=== PATIENT | female | born 1990 | race African-American/Black ===

== ENCOUNTER 2017-04-03 12:11 | Emergency (ER) | payer MEDICAID, OTHER ==
[~2017-04-03] VITALS: Ht 157.5 cm; Wt 59.0 kg
[2017-04-03 12:46] LABS: BASOPHILS % (AUTO) 0 % (0-10); EOSINOPHILS # (AUTO) 0.1 10^3/uL (0.0-0.3); EOSINOPHILS % (AUTO) 3 % (0-10); LYMPHOCYTES # (AUTO) 1.5 X 10^3 (1.0-4.0); LYMPHOCYTES % (AUTO) 38 % (12-44); MEAN CORPUSCULAR HEMOGLOBIN 30 PG (25-34); MEAN CORPUSCULAR HGB CONC 34 G/DL (32-36); MEAN CORPUSCULAR VOLUME 88 FL (80-99); MEAN PLATELET VOLUME 12.2 FL (7.4-10.4); MONOCYTES # (AUTO) 0.3 X 10^3 (0.0-1.0); MONOCYTES % (AUTO) 7 % (0-12); NEUTROPHILS # (AUTO) 2.1 X 10^3 (1.8-7.8); NEUTROPHILS % (AUTO) 51 % (42-75); PLATELET COUNT 213 10^3/uL (130-400); RED BLOOD COUNT 4.81 10^6/uL (4.35-5.85)
--- NOTE | 2017-04-03 12:52 | Diagnostic Imaging Report ---
Portable upright radiograph of the chest. INDICATION: Chest pain. FINDINGS: The lungs are clear. The heart size is borderline in size, probably exaggerated by the AP projection. No effusion or pneumothorax. The mediastinum and clark appear unremarkable. IMPRESSION: Prominent cardiac silhouette, probably due to the AP technique. No definite abnormality. Dictated by: Dictated on workstation # [id number]
--- NOTE | 2017-04-03 12:52 | ED Chest Pain ---
General Chief Complaint: Chest Pain Stated Complaint: CHEST PAIN Nursing Triage Note: c/o sternal intermittent chest pain x 1 month. Nursing Sepsis Screen: No Definite Risk Source: patient Exam Limitations: no limitations History of Present Illness Time seen by provider: 12:40 Allergies and Home Medications Allergies Coded Allergies: No Known Drug Allergies (Unverified , 04/03/17) Home Medications No Active Prescriptions or Reported Meds Past Tggkfcb-Jbqkhv-Birwoc Hx Patient Social History Alcohol Use: Denies Use Recreational Drug Use: Yes Drug of Choice: thc Smoking Status: Current Everyday Smoker Type Used: Cigarettes Recent Foreign Travel: No Contact w/Someone Who Travel: No Recent Infectious Disease Expo: No Recent Hopitalizations: No Seasonal Allergies Seasonal Allergies: No Physical Exam Vital Signs Vital Sign - Last 12Hours Capillary Refill : Less Than 3 Seconds Progress/Results/Core Measures Results/Orders Lab Results Laboratory Tests Test 04/03/17 12:35 Range/Units White Blood Count 4.0 L 4.3-11.0 10^3/uL Red Blood Count 4.81 4.35-5.85 10^6/uL Hemoglobin 14.5 11.5-16.0 G/DL Hematocrit 42 35-52 % Mean Corpuscular Volume 88 80-99 FL Mean Corpuscular Hemoglobin 30 25-34 PG Mean Corpuscular Hemoglobin Concent 34 32-36 G/DL Red Cell Distribution Width 12.0 10.0-14.5 % Platelet Count 213 130-400 10^3/uL Mean Platelet Volume 12.2 H 7.4-10.4 FL Neutrophils (%) (Auto) 51 42-75 % Lymphocytes (%) (Auto) 38 12-44 % Monocytes (%) (Auto) 7 0-12 % Eosinophils (%) (Auto) 3 0-10 % Basophils (%) (Auto) 0 0-10 % Neutrophils # (Auto) 2.1 1.8-7.8 X 10^3 Lymphocytes # (Auto) 1.5 1.0-4.0 X 10^3 Monocytes # (Auto) 0.3 0.0-1.0 X 10^3 Eosinophils # (Auto) 0.1 0.0-0.3 10^3/uL Basophils # (Auto) 0.0 0.0-0.1 10^3/uL Sodium Level 139 135-145 MMOL/L Potassium Level 3.7 3.6-5.0 MMOL/L Chloride Level 105 98-107 MMOL/L Carbon Dioxide Level 24 21-32 MMOL/L Anion Gap 10 5-14 MMOL/L Blood Urea Nitrogen 8 7-18 MG/DL Creatinine 0.85 0.60-1.30 MG/DL Estimat Glomerular Filtration Rate > 60 BUN/Creatinine Ratio 9 Glucose Level 102 70-105 MG/DL Calcium Level 9.4 8.5-10.1 MG/DL Magnesium Level 2.3 1.8-2.4 MG/DL Total Bilirubin 0.4 0.1-1.0 MG/DL Aspartate Amino Transf (AST/SGOT) 18 5-34 U/L Alanine Aminotransferase (ALT/SGPT) 13 0-55 U/L Alkaline Phosphatase 48 40-136 U/L Troponin I < 0.30 <0.30 NG/ML Total Protein 6.9 6.4-8.2 G/DL Albumin 4.2 3.2-4.5 G/DL TSH [place] Testing 0.97 0.35-4.94 UIU/ML My Orders Orders - ALEX RHOADES Cbc With Automated Diff (04/03/17 12:31) Comprehensive Metabolic Panel (04/03/17 12:31) Magnesium (04/03/17 12:31) Thyroid Analyzer (04/03/17 12:31) Troponin I (04/03/17 12:31) Saline Lock/Iv-Start (04/03/17 12:31) Urine Bedside (04/03/17 12:31) Ekg Tracing (04/03/17 12:31) Chest 1 View, Ap/Pa Only (04/03/17 12:31) Vital Signs/I&O Vital Sign - Last 12Hours 04/03/17 04/03/17 12:18 12:18 Temp 98.9 Pulse 64 Resp 18 B/P (MAP) Pulse Ox 100 O2 Delivery Room Air Room Air Diagnostic Imaging Diagonstic Imaging: Xray Plain Films/CT/US/NM/MRI: chest Comments CHEST 1 VIEW, AP/PA ONLY Portable upright radiograph of the chest. INDICATION: Chest pain. FINDINGS: The lungs are clear. The heart size is borderline in size , probably exaggerated by the AP projection. No effusion or pneumothorax. The mediastinum and clark appear unremarkable. IMPRESSION: Prominent cardiac silhouette, probably due to the AP technique. No definite abnormality. Dictated on workstation # [id number] Reviewed: Reviewed by Me (radiology report reviewed by me.) Departure Impression Impression: Primary Impression: Chest pain, non-cardiac Additional Impression: Upper respiratory infection Qualified Codes: J06.9 - Acute upper respiratory infection, unspecified Disposition: HOME, SELF-CARE Condition: Improved Departure-Patient Inst. Decision time for Depature: 13:38 Referrals: NO,LOCAL PHYSICIAN (PCP/Family) Primary Care Physician Patient Instructions: Chest Pain That Is Not Caused by the Heart (DC) Add. Discharge Instructions: All discharge instructions reviewed with patient and/or family. Voiced understanding. Tylenol extra strength eaon-oyf-[id number] as directed for pain. Ibuprofen 800 mg by mouth every 8 hours as needed for pain. Medications as prescribed. Saline nasal spray and Afrin nasal spray ghni-scm-iakitng as needed for nasal congestion. Drink plenty of fluids. Cool humidifier. Follow- up with the family practitioner of your choice for recheck, to establish care, and further evaluation. Call for appointment time today. Return to the emergency department for worsened pain, shortness of air, dizziness, vomiting, abdominal pain, numbness, weakness, or any other concerns. Scripts Prednisone (Prednisone) 20 Mg Tab 40 MG PO DAILY, #10 TAB 0 Refills Prov: ALEX RHOADES 04/03/17 Cephalexin (Cephalexin) 500 Mg Capsule 500 MG PO TID, #30 CAP 0 Refills Prov: ALEX RHOAEDS 04/03/17 Work/School Note: Local Medical Staff Listing, Work Release Form Date Seen in the Emergency Department: April 03, 2017 Return to Work: April 04, 2017 Restrictions: No Restrictions ALEX RHOADES April 03, 2017 12:52
[2017-04-03 13:05] LABS: ALANINE AMINOTRANSFERASE 13 U/L (0-55); ALBUMIN 4.2 G/DL (3.2-4.5); ANION GAP 10 MMOL/L (5-14); ASPARTATE AMINO TRANSFERASE 18 U/L (5-34); BILIRUBIN,TOTAL 0.4 MG/DL (0.1-1.0); BLOOD UREA NITROGEN 8 MG/DL (7-18); BUN/CREATININE RATIO 9; CALCIUM 9.4 MG/DL (8.5-10.1); CARBON DIOXIDE 24 MMOL/L (21-32); CHLORIDE 105 MMOL/L (98-107); CREATININE SERUM 0.85 MG/DL (0.60-1.30); GFR ESTIMATED > 60; GLUCOSE 102 MG/DL (70-105); MAGNESIUM 2.3 MG/DL (1.8-2.4); POTASSIUM 3.7 MMOL/L (3.6-5.0); SODIUM 139 MMOL/L (135-145); TOTAL PROTEIN 6.9 G/DL (6.4-8.2)
[2017-04-03 13:25] LABS: TROPONIN I < 0.30 NG/ML (<0.30)
[2017-04-03] MEDS ORDERED: CEPH500C PO (13:44)
[2017-04-03] MEDS ORDERED: PRD20T PO (13:44)
[2017-04-03 13:53] VITALS: BP 129/92
== END 2017-04-03 13:53 | disposition home or self-care (01) ==
LOC: ER 12:14
DX: R07.89 Other chest pain (principal); J06.9 Acute upper respiratory infection, unspecified; F17.210 Nicotine dependence, cigarettes, uncomplicated
CPT/HCPCS: 36415; 71010; 80053; 83735; 84443; 84484; 85025; 93005

== ENCOUNTER 2019-01-24 10:33 | Emergency (ER) | payer MEDICAID ==
[~2019-01-24] VITALS: Ht 157.5 cm; Wt 63.5 kg
[~2019-01-24 10:33] MED LIST: CEPH500C PO; PRD20T PO
--- NOTE | 2019-01-24 11:07 | ED Cough/URI ---
General Chief Complaint: Cough/Cold/Flu Symptoms Stated Complaint: COUGH, VOMITTING Nursing Triage Note: PT AMB TO RM 10 WITH COMPLAINT OF COUGH, CHILLS, AND CHEST DISCOMFORT FOR THE LAST THREE DAYS. Sepsis Screen: No Definite Risk Source: patient Exam Limitations: no limitations History of Present Illness Date Seen by Provider: Jan 24, 2019 Time Seen by Provider: 11:07 Initial Comments 28 year old female who presents to the emergency room with complains of cough, chills, and chest congestion for the last 3 days. Reports that she thinks she has had fever but does not have a thermometer. Denies SOB. Timing/Duration: other (3 days) Severity/Quality: productive cough Associated Symptoms: cough, fever/chills, nasal congestion Allergies and Home Medications Allergies Coded Allergies: No Known Drug Allergies (Unverified , 04/03/17) Home Medications Cephalexin 500 Mg Capsule, 500 MG PO TID Prescribed by: ALEX RHOADES on 04/03/17 1344 Prednisone 20 Mg Tab, 40 MG PO DAILY Prescribed by: ALEX RHOADES on 04/03/17 1344 Patient Home Medication List Home Medication List Reviewed: Yes Review of Systems Review of Systems Constitutional: see HPI, chills, fever EENTM: see HPI, nose congestion Respiratory: see HPI, cough All Other Systems Reviewed Negative Unless Noted: Yes Past Tvnpjhu-Xewver-Hgocdh Hx Past Med/Social Hx: Reviewed Nursing Past Med/Soc Hx Patient Social History Alcohol Use: Denies Use Recreational Drug Use: No Drug of Choice: thc Smoking Status: Current Everyday Smoker Type Used: Cigarettes Recent Foreign Travel: No Contact w/Someone Who Travel: No Recent Infectious Disease Expo: No Recent Hopitalizations: No Immunizations Up To Date Tetanus Booster (TDap): Unknown PED Vaccines UTD: Yes Seasonal Allergies Seasonal Allergies: No Past Medical History Surgeries: No Respiratory: No Cardiac: No Neurological: No Genitourinary: No Gastrointestinal: No Musculoskeletal: No Endocrine: No HEENT: No Cancer: No Psychosocial: Yes Anxiety Integumentary: No Blood Disorders: No Family Medical History Reviewed Nursing Family Hx No Pertinent Family Hx Physical Exam Vital Signs - First Documented 01/24/19 10:55 Temp 99.8 Pulse 95 Resp 20 B/P (MAP) 145/110 (122) Pulse Ox 100 O2 Delivery Room Air Capillary Refill : Less Than 3 Seconds Height: 5'2.00" Weight: 140lbs. oz. [id number]; BMI Method:Stated General Appearance: WD/WN, no apparent distress Eyes: Bilateral Eye Normal Inspection, Bilateral Eye PERRL, Bilateral Eye EOMI HEENT: PERRL/EOMI, normal ENT inspection, TMs normal, pharynx normal Respiratory: chest non-tender, lungs clear, normal breath sounds, no respiratory distress, no accessory muscle use, respiratory distress Cardiovascular: normal peripheral pulses, regular rate, rhythm, no edema, no gallop, no JVD, no murmur Extremities: normal capillary refill Neurologic/Psychiatric: alert, oriented x 3 Skin: normal color, warm/dry Progress/Results/Core Measures Suspected Sepsis Recent Fever Within 48 Hours: No Infection Criteria Present: None New/Unexplained Altered Menta: No Sepsis Screen: No Definite Risk SIRS Temperature:99.8 Pulse: 95 Respiratory Rate: 20 Blood Pressure 145 /110 Mean: 122 Results/Orders Lab Results Laboratory Tests Test 01/24/19 11:04 Range/Units Group A Streptococcus Screen NEGATIVE NEGATIVE Micro Results Microbiology 01/24/19 Influenza Types A,B Antigen (KIT) - Final, Complete 01/24/19 Throat Culture - Preliminary, Resulted No Beta Strep isolated My Orders Orders - MARTINEZ GARCIA Rapid Strep A Screen (01/24/19 11:07) Promethazine/ Codeine Syrup (Phenergan W (01/24/19 11:15) Medications Given in ED Vital Signs/I&O 01/24/19 01/24/19 10:55 12:10 Temp 99.8 Pulse 95 80 Resp 20 20 B/P (MAP) 145/110 (122) 135/93 (107) Pulse Ox 100 97 O2 Delivery Room Air Room Air Capillary Refill : Less Than 3 Seconds Blood Pressure Mean: 122 Departure Impression Primary Impression: Influenza Disposition: 01 HOME, SELF-CARE Condition: Stable/Unchanged Departure-Patient Inst. Decision time for Depature: 11:44 Referrals: NO,LOCAL PHYSICIAN (PCP/Family) Primary Care Physician Patient Instructions: Flu, Adult (DC) Add. Discharge Instructions: Drink plenty of fluids to stay hydrated. You may use xait-aqe-bnlywat cold cough flu medications for symptoms. He may also use Tylenol and ibuprofen for pain and fever. Do not exceed your daily Tylenol limit of 4000 mg. Do not exceed your daily ibuprofen of 1200 mg daily. All discharge instructions reviewed with patient and/or family. Voiced understanding. Work/School Note: Work Release Form Date Seen in the Emergency Department: Jan 24, 2019 Return to Work: Jan 27, 2019 Restrictions: Return-No Fever (24hrs) MARTINEZ GARCIA Jan 24, 2019 11:07
[2019-01-24] MEDS ORDERED: PROMETHAZINE/ CODEINE SYRUP 5 ML UDC PO ONE (11:15)
[2019-01-24 12:10] VITALS: BP 135/93
== END 2019-01-24 12:10 | disposition home or self-care (01) ==
LOC: EDUNIT# 10:33 → ER 10:35
DX: J11.1 Influenza due to unidentified influenza virus with other respiratory manifestations (principal); F41.9 Anxiety disorder, unspecified; F17.210 Nicotine dependence, cigarettes, uncomplicated; Z79.52 Long term (current) use of systemic steroids
CPT/HCPCS: 87430; 87804

== ENCOUNTER 2021-05-24 20:08 | Emergency (ER) | payer MEDICAID ==
[~2021-05-24] VITALS: Ht 157 cm; Wt 59.0 kg
[2021-05-24 20:28] LABS: BILIRUBIN,URINE NEGATIVE (NEGATIVE); CLARITY,URINE CLOUDY; COLOR,URINE YELLOW; GLUCOSE, URINE (UA) NEGATIVE (NEGATIVE); KETONES,URINE NEGATIVE (NEGATIVE); LEUKOCYTE ESTERASE ,URINE TRACE (NEGATIVE); NITRITE,URINE NEGATIVE (NEGATIVE); PROTEIN,URINE NEGATIVE (NEGATIVE)
--- NOTE | 2021-05-24 20:29 | ED General ---
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, AND SHE STOPPED AND SOME GIRLS IN THE CAR BEHIND HER GOT OUT AND SPRAYED HER WITH MACE STATES SHE DROVE ON TO WORK, AND THEN ABOUT 30 MINUTES AFTER SHE GOT TO WORK ( WORKS AT [employer] AND [employer]), HER HEART STARTED RACING --HR 120--GOT UP TO 160, AND HER BLOOD PRESSURE WAS HIGH--140'S/110'S, AND SHE STARTED SHAKING REAL BAD STATES SHE CONTINUED TO WORK, THEN WENT ON BREAK AND DROVE HOME, AND THEN CAME HERE NO SKIN OR EYE SYMPTOMS FROM "MACE" NO CHEST PAIN NO SHORTNESS OF BREATH NO GI SYMPTOMS HAS BEEN EATING AND DRINKING NORMALLY, ATE DINNER AT WORK TONIGHT NO URINARY SYMPTOMS AND VOIDING A NORMAL AMOUNT LMP 04/29/21. NORMAL. NO CONTROL NO HISTORY OF SIMILAR DOES HAVE A HISTORY OF ANXIETY DOES NOT TAKE ANY MEDICATIONS DENIES ANY CHRONIC MEDICAL PROBLEMS PT SMOKES 1 PPD, DRINKS ETOH ON REGULAR BASIS, CLAIMS NONE TODAY SMOKES MARIJUANA ON REGULAR BASIS, DENIES OTHER DRUG USE Allergies and Home Medications Allergies Coded Allergies: No Known Drug Allergies (Unverified , 04/03/17) Home Medications Cephalexin 500 Mg Capsule, 500 MG PO TID Prescribed by: ALEX RHOADES on 04/03/17 1344 Prednisone 20 Mg Tab, 40 MG PO DAILY Prescribed by: ALEX RHOADES on 04/03/17 1344 Patient Home Medication List Home Medication List Reviewed: Yes Review of Systems Review of Systems Constitutional: no symptoms reported EENTM: no symptoms reported Respiratory: no symptoms reported Cardiovascular: see HPI Gastrointestinal: no symptoms reported Genitourinary: no symptoms reported LMP: Apr 29, 2021 Musculoskeletal: no symptoms reported Skin: no symptoms reported Psychiatric/Neurological: Anxiety Hematologic/Lymphatic: No Symptoms Reported Immunological/Allergic: no symptoms reported Past Luzvavz-Frwppv-Tznjbv Hx Patient Social History Tobacco Use?: Yes (1 PPD) Tobacco type used: Cigarettes Smokeless Tobacco Frequency: Never a User Use of E-Cig and/or Vaping dev: No Substance use?: Yes Substance type: Marijuana Substance frequency: Daily Alcohol Use?: Yes Alcohol Frequency: Couple times a week Immunizations Up To Date Tetanus Booster (TDap): Unknown PED Vaccines UTD: Yes Seasonal Allergies Seasonal Allergies: No Past Medical History Surgeries: No Respiratory: No Cardiac: No Neurological: No : No Reproductive Disorders: No Genitourinary: No Gastrointestinal: No Musculoskeletal: No Endocrine: No HEENT: No Cancer: No Psychosocial: Yes Anxiety Integumentary: No Blood Disorders: No Family Medical History No Pertinent Family Hx Physical Exam Vital Signs Vital Signs - First Documented 05/24/21 20:23 Temp 37.2 Pulse 134 Resp 20 B/P (MAP) 149/118 (128) O2 Delivery Room Air Capillary Refill : Height, Weight, BMI Height: 5'2.00" Weight: 140lbs. oz. 63.032198sb; BMI Method:Stated General Appearance: No Apparent Distress, WD/WN, Anxious Neck: Normal Inspection Respiratory: Normal Breath Sounds, No Accessory Muscle Use, No Respiratory Distress Cardiovascular: No Edema, No JVD, No Murmur, Normal Peripheral Pulses, Tachycardia Gastrointestinal: Non Tender, Soft Extremity: Normal Inspection, No Pedal Edema Neurologic/Psychiatric: Alert, Oriented x3, No Motor/Sensory Deficits, quality assurance nurse II- XII Norm as Tested, Other (ANXIOUS) Skin: Normal Color (PT IS BLACK), Warm/Dry, Tattoos/Piercings (MULTIPLE TATTOOS) Progress/Results/Core Measures Suspected Sepsis SIRS Temperature: Pulse: Respiratory Rate: Laboratory Tests 05/24/21 20:30: White Blood Count 7.3 Blood Pressure / Mean: Laboratory Tests 05/24/21 20:30: Creatinine 0.97, Platelet Count 203, Total Bilirubin 0.5 Results/Orders Lab Results Laboratory Tests Test 05/24/21 20:24 05/24/21 20:30 Range/Units Urine Color YELLOW Urine Clarity CLOUDY Urine pH 6.0 5-9 Urine Specific [place] 1.020 1.016-1.022 Urine Protein NEGATIVE NEGATIVE Urine Glucose (UA) NEGATIVE NEGATIVE Urine Ketones NEGATIVE NEGATIVE Urine Nitrite NEGATIVE NEGATIVE Urine Bilirubin NEGATIVE NEGATIVE Urine Urobilinogen 1.0 < = 1.0 MG/DL Urine Leukocyte Esterase TRACE H NEGATIVE Urine RBC (Auto) 2+ H NEGATIVE Urine RBC 0-2 /HPF Urine WBC 0-2 /HPF Urine Squamous Epithelial Cells 5-10 /HPF Urine Crystals NONE /LPF Urine Bacteria FEW H /HPF Urine Casts NONE /LPF Urine Mucus MODERATE H /LPF Urine Culture Indicated NO Urine Opiates Screen NEGATIVE NEGATIVE Urine Oxycodone Screen NEGATIVE NEGATIVE Urine Methadone Screen NEGATIVE NEGATIVE Urine Propoxyphene Screen NEGATIVE NEGATIVE Urine Barbiturates Screen NEGATIVE NEGATIVE Ur Tricyclic Antidepressants Screen NEGATIVE NEGATIVE Urine Phencyclidine Screen NEGATIVE NEGATIVE Urine Amphetamines Screen NEGATIVE NEGATIVE Urine Methamphetamines Screen NEGATIVE NEGATIVE Urine Benzodiazepines Screen NEGATIVE NEGATIVE Urine Cocaine Screen NEGATIVE NEGATIVE Urine Cannabinoids Screen POSITIVE H NEGATIVE White Blood Count 7.3 4.3-11.0 10^3/uL Red Blood Count 4.40 3.80-5.11 10^6/uL Hemoglobin 13.7 11.5-16.0 g/dL Hematocrit 39 35-52 % Mean Corpuscular Volume 88 80-99 fL Mean Corpuscular Hemoglobin 31 25-34 pg Mean Corpuscular Hemoglobin Concent 35 32-36 g/dL Red Cell Distribution Width 12.4 10.0-14.5 % Platelet Count 203 130-400 10^3/uL Mean Platelet Volume 11.5 9.0-12.2 fL Immature Granulocyte % (Auto) 0 % Neutrophils (%) (Auto) 74 42-75 % Lymphocytes (%) (Auto) 20 12-44 % Monocytes (%) (Auto) 6 0-12 % Eosinophils (%) (Auto) 0 0-10 % Basophils (%) (Auto) 0 0-10 % Neutrophils # (Auto) 5.4 1.8-7.8 10^3/uL Lymphocytes # (Auto) 1.5 1.0-4.0 10^3/uL Monocytes # (Auto) 0.5 0.0-1.0 10^3/uL Eosinophils # (Auto) 0.0 0.0-0.3 10^3/uL Basophils # (Auto) 0.0 0.0-0.1 10^3/uL Immature Granulocyte # (Auto) 0.0 0.0-0.1 10^3/uL Sodium Level 141 135-145 MMOL/L Potassium Level 3.5 L 3.6-5.0 MMOL/L Chloride Level 107 98-107 MMOL/L Carbon Dioxide Level 19 L 21-32 MMOL/L Anion Gap 15 H 5-14 MMOL/L Blood Urea Nitrogen 8 7-18 MG/DL Creatinine 0.97 0.60-1.30 MG/DL Estimat Glomerular Filtration Rate > 60 BUN/Creatinine Ratio 8 Glucose Level 110 H 70-105 MG/DL Calcium Level 9.8 8.5-10.1 MG/DL Corrected Calcium 8.5-10.1 MG/DL Magnesium Level 1.9 1.6-2.4 MG/DL Total Bilirubin 0.5 0.1-1.0 MG/DL Aspartate Amino Transf (AST/SGOT) 17 5-34 U/L Alanine Aminotransferase (ALT/SGPT) 12 0-55 U/L Alkaline Phosphatase 44 40-136 U/L Total Protein 7.4 6.4-8.2 GM/DL Albumin 4.6 H 3.2-4.5 GM/DL TSH [place] Testing 0.35 0.35-4.94 UIU/ML Serum Alcohol < 10 <10 MG/DL My Orders Orders - VICTOR HUGO LEAVITT DO Ed Iv/Invasive Line Start (05/24/21 20:21) Urine Bedside (05/24/21 20:21) Ekg Tracing (05/24/21 20:21) Monitor-Rhythm Ecg Trace Only (05/24/21 20:21) Alcohol (05/24/21 20:21) Cbc With Automated Diff (05/24/21 20:21) Comprehensive Metabolic Panel (05/24/21 20:21) Drug Screen Stat (Urine) (05/24/21 20:21) Magnesium (05/24/21 20:21) Thyroid Analyzer (05/24/21 20:21) Ua Culture If Indicated (05/24/21 20:21) Ed Iv/Invasive Line Start (05/24/21 20:21) Lactated Ringers (Lr 1000 Ml Iv Solution (05/24/21 20:30) Medications Given in ED Current Medications Medications Dose Ordered Sig/Demetrio Route Start Time Stop Time Status Last Admin Dose Admin Lactated Ringer's 1,000 ml @ 0 mls/hr Q0M ONCE IV 05/24/21 20:30 05/24/21 20:31 DC 05/24/21 20:34 1,000 MLS/HR Vital Signs/I&O 05/24/21 20:23 Temp 37.2 Pulse 134 Resp 20 B/P (MAP) 149/118 (128) O2 Delivery Room Air Capillary Refill : Progress Note : Progress Note GIVEN IV FLUIDS PT CALMER, HEART RATE AND BP DOWN SIGNIFICANTLY AT TIME OF DISMISSAL, AND PT HAS NO COMPLAINTS ECG Initial ECG Impression Date: May 24, 2021 Initial ECG Impression Time: 20:18 Initial ECG Rate: 139 Initial ECG Rhythm: S.Tach Initial ECG Impression: Nonspecific Changes Departure Impression Primary Impression: Situational anxiety Disposition: 01 HOME, SELF-CARE Condition: Improved Departure-Patient Inst. Decision time for Depature: 21:30 Referrals: NO,LOCAL PHYSICIAN (PCP/Family) Primary Care Physician Patient Instructions: Anxiety, Adult (DC) Add. Discharge Instructions: LOTS OF CLEAR LIQUIDS NO CAFFEINE OR OTHER STIMULANTS FOLLOW UP WITH YOUR DR FOR FURTHER CARE RETURN TO ER IF SYMPTOMS RETURN All discharge instructions reviewed with patient and/or family. Voiced understanding. VICTOR HUGO LEAVITT DO May 24, 2021 20:29
[2021-05-24] MEDS ORDERED: LACTATED RINGERS 1,000 ML IV ONE (20:30)
[2021-05-24 20:34] LABS: BACTERIA,URINE FEW /HPF; RBC,URINE 0-2 /HPF; WBC,URINE 0-2 /HPF
[2021-05-24 20:38] LABS: AMPHETAMINE SCREEN, URINE NEGATIVE (NEGATIVE); BARBITURATE SCREEN URINE NEGATIVE (NEGATIVE); BENZODIAZEPINES SCREEN URINE NEGATIVE (NEGATIVE); CANNABINOID SCREEN, URINE POSITIVE (NEGATIVE); COCAINE SCREEN URINE NEGATIVE (NEGATIVE); METHADONE STAT NEGATIVE (NEGATIVE); METHAMPHETAMINE SCREEN URINE S NEGATIVE (NEGATIVE); OPIATE SCREEN URINE NEGATIVE (NEGATIVE); OXYCODONE STAT NEGATIVE (NEGATIVE); PROPOXYPHENE STAT NEGATIVE (NEGATIVE); TRICYCLIC ANTIDEPRESSANTS SCRE NEGATIVE (NEGATIVE)
[2021-05-24 20:39] LABS: BASOPHILS % (AUTO) 0 % (0-10); EOSINOPHILS % (AUTO) 0 % (0-10); HEMATOCRIT 39 % (35-52); HEMOGLOBIN 13.7 g/dL (11.5-16.0); LYMPHOCYTES # (AUTO) 1.5 10^3/uL (1.0-4.0); LYMPHOCYTES % (AUTO) 20 % (12-44); MEAN CORPUSCULAR HEMOGLOBIN 31 pg (25-34); MEAN CORPUSCULAR HGB CONC 35 g/dL (32-36); MEAN CORPUSCULAR VOLUME 88 fL (80-99); MEAN PLATELET VOLUME 11.5 fL (9.0-12.2); MONOCYTES # (AUTO) 0.5 10^3/uL (0.0-1.0); MONOCYTES % (AUTO) 6 % (0-12); NEUTROPHILS # (AUTO) 5.4 10^3/uL (1.8-7.8); NEUTROPHILS % (AUTO) 74 % (42-75); PLATELET COUNT 203 10^3/uL (130-400); WHITE BLOOD COUNT 7.3 10^3/uL (4.3-11.0)
[2021-05-24 21:01] LABS: ALBUMIN 4.6 GM/DL (3.2-4.5); CHLORIDE 107 MMOL/L (98-107); POTASSIUM 3.5 MMOL/L (3.6-5.0); SODIUM 141 MMOL/L (135-145)
[2021-05-24 21:02] LABS: CALCIUM 9.8 MG/DL (8.5-10.1)
[2021-05-24 21:03] LABS: GLUCOSE 110 MG/DL (70-105); TOTAL PROTEIN 7.4 GM/DL (6.4-8.2)
[2021-05-24 21:04] LABS: CARBON DIOXIDE 19 MMOL/L (21-32)
[2021-05-24 21:05] LABS: BILIRUBIN,TOTAL 0.5 MG/DL (0.1-1.0)
[2021-05-24 21:07] LABS: ALKALINE PHOSPHATASE 44 U/L (40-136); CREATININE SERUM 0.97 MG/DL (0.60-1.30); GFR ESTIMATED > 60
[2021-05-24 21:08] LABS: BUN/CREATININE RATIO 8
[2021-05-24 21:10] LABS: ALANINE AMINOTRANSFERASE 12 U/L (0-55); MAGNESIUM 1.9 MG/DL (1.6-2.4)
[2021-05-24 21:30] LABS: TSH (THYROID ANALYZER) 0.35 UIU/ML (0.35-4.94)
[2021-05-24 21:40] VITALS: BP 132/92
== END 2021-05-24 21:41 | disposition home or self-care (01) ==
LOC: EDUNIT# 20:08 → ER 20:10
DX: F40.248 Other situational type phobia (principal); Z79.52 Long term (current) use of systemic steroids
CPT/HCPCS: 80053; 80306; 81000; 83735; 84443; 84703; 85025; 93005; 93041; 99284; G0480; 36415; 80320

== ENCOUNTER 2021-10-17 05:52 | Emergency (ER) | payer MEDICAID ==
[2021-10-17] MEDS ORDERED: KETOROLAC 30 MG/ML VIAL IVP ONE (06:30)
[2021-10-17 06:38] LABS: BASOPHILS % (AUTO) 0 % (0-10); EOSINOPHILS # (AUTO) 0.1 10^3/uL (0.0-0.3); EOSINOPHILS % (AUTO) 2 % (0-10); HEMATOCRIT 42 % (35-52); HEMOGLOBIN 14.4 g/dL (11.5-16.0); LYMPHOCYTES # (AUTO) 1.8 10^3/uL (1.0-4.0); LYMPHOCYTES % (AUTO) 61 % (12-44); MEAN CORPUSCULAR HEMOGLOBIN 30 pg (25-34); MEAN CORPUSCULAR HGB CONC 34 g/dL (32-36); MEAN CORPUSCULAR VOLUME 89 fL (80-99); MEAN PLATELET VOLUME 10.8 fL (9.0-12.2); MONOCYTES # (AUTO) 0.2 10^3/uL (0.0-1.0); MONOCYTES % (AUTO) 6 % (0-12); NEUTROPHILS # (AUTO) 0.9 10^3/uL (1.8-7.8); NEUTROPHILS % (AUTO) 31 % (42-75); PLATELET COUNT 211 10^3/uL (130-400); WHITE BLOOD COUNT 2.9 10^3/uL (4.3-11.0)
[2021-10-17 06:45] LABS: POTASSIUM 3.6 MMOL/L (3.6-5.0)
[2021-10-17 06:47] LABS: CALCIUM 8.8 MG/DL (8.5-10.1)
[2021-10-17 06:51] LABS: CREATININE SERUM 0.71 MG/DL (0.60-1.30)
--- NOTE | 2021-10-17 07:57 | Diagnostic Imaging Report ---
INDICATION: Right leg pain is no known injury. Covid positive. TECHNIQUE: Frontal and Lateral views of the right femur CORRELATION STUDY: None FINDINGS: Examination of the femur demonstrates no evidence for acute bony abnormality or fracture of the femur. No zeynep bony destructive change. Imaging of the hip and knee are unremarkable. Soft tissues are unremarkable. Rounded calcification in the right hemipelvis, nonspecific. IMPRESSION: 1. Negative for acute bony abnormality of the femur. Dictated by: Dictated on workstation # [id number]
--- NOTE | 2021-10-17 08:59 | ED Lower Extremity ---
General Chief Complaint: Lower Extremity Stated Complaint: COVID+,RT LEG PAIN Source: patient Exam Limitations: no limitations History of Present Illness Date Seen by Provider: Oct 17, 2021 Time Seen by Provider: 06:20 Initial Comments This 31-year-old woman presents to the emergency room with diagnosis of COVID-19 last week. She has had fairly mild symptoms but today complains of a severe pain that feels deep in the right thigh. It is intermittent and intense. Bearing weight or movement sometimes makes it worse. She denies any back pain. There is no known trauma. She denies any prior episodes. Pain seems to be spasm-like in nature but she does not have any palpable spasm on exam. Distal exam is unremarkable. Pain started last night. Allergies and Home Medications Allergies Coded Allergies: No Known Drug Allergies (Unverified , 04/03/17) Patient Home Medication List Home Medication List Reviewed: Yes Cephalexin (Cephalexin) 500 Mg Capsule, 500 MG PO TID Prescribed by: ALEX RHOADES on 04/03/17 1344 Prednisone (Prednisone) 20 Mg Tab, 40 MG PO DAILY Prescribed by: ALEX RHOADES on 04/03/17 1344 Review of Systems Constitutional: fever EENTM: nose congestion Respiratory: cough Cardiovascular: no symptoms reported Gastrointestinal: no symptoms reported Genitourinary: no symptoms reported Musculoskeletal: see HPI Skin: no symptoms reported Psychiatric/Neurological: See HPI Past Mpklcyv-Ipvjdj-Vkpvtr Hx Patient Social History Tobacco Use?: Yes Tobacco type used: Cigarettes Substance use?: Yes Substance type: Marijuana Alcohol Use?: Yes Alcohol Frequency: Daily Immunizations Up To Date Tetanus Booster (TDap): Unknown PED Vaccines UTD: Yes Seasonal Allergies Seasonal Allergies: No Past Medical History Surgeries: No Respiratory: No Cardiac: No Neurological: No : No Reproductive Disorders: No Genitourinary: No Gastrointestinal: No Musculoskeletal: No Endocrine: No HEENT: No Cancer: No Psychosocial: Yes Anxiety Integumentary: No Blood Disorders: No Family Medical History No Pertinent Family Hx Physical Exam Vital Signs Vital Signs - First Documented 10/17/21 09:17 Pulse 63 Resp 16 B/P (MAP) 127/97 Pulse Ox 98 O2 Delivery Room Air Capillary Refill : Height, Weight, BMI Height: 5'2.00" Weight: 140lbs. oz. 63.235063uz; 23.00 BMI Method:Stated General Appearance: WD/WN, mild distress HEENT: PERRL/EOMI, normal ENT inspection, pharynx normal Neck: normal inspection Cardiovascular: regular rate, rhythm, no edema, no murmur Respiratory: lungs clear, normal breath sounds, no respiratory distress Gastrointestinal: normal bowel sounds, non tender, soft Hips: right hip non-tender, right hip normal inspection, right hip normal range of motion, right hip no evidence of injury Legs: right leg non-tender, right leg normal inspection, right leg normal range of motion, right leg no evidence of injury Knees: right knee non-tender, right knee normal inspection, right knee normal range of motion, right knee no evidence of injury Ankles: right ankle non-tender, right ankle normal inspection, right ankle normal range of motion, right ankle no evidence of injury Feet: right foot non-tender, right foot normal inspection, right foot normal range of motion, right foot no evidence of injury, right foot other (Pedal pulses not easily palpable but posterior and dorsal pedal pulses heard with Doppler.) Progress/Results/Core Measures Results/Orders Lab Results Laboratory Tests Test 10/17/21 06:30 Range/Units White Blood Count 2.9 L 4.3-11.0 10^3/uL Red Blood Count 4.77 3.80-5.11 10^6/uL Hemoglobin 14.4 11.5-16.0 g/dL Hematocrit 42 35-52 % Mean Corpuscular Volume 89 80-99 fL Mean Corpuscular Hemoglobin 30 25-34 pg Mean Corpuscular Hemoglobin Concent 34 32-36 g/dL Red Cell Distribution Width 12.0 10.0-14.5 % Platelet Count 211 130-400 10^3/uL Mean Platelet Volume 10.8 9.0-12.2 fL Immature Granulocyte % (Auto) 0 % Neutrophils (%) (Auto) 31 L 42-75 % Lymphocytes (%) (Auto) 61 H 12-44 % Monocytes (%) (Auto) 6 0-12 % Eosinophils (%) (Auto) 2 0-10 % Basophils (%) (Auto) 0 0-10 % Neutrophils # (Auto) 0.9 L 1.8-7.8 10^3/uL Lymphocytes # (Auto) 1.8 1.0-4.0 10^3/uL Monocytes # (Auto) 0.2 0.0-1.0 10^3/uL Eosinophils # (Auto) 0.1 0.0-0.3 10^3/uL Basophils # (Auto) 0.0 0.0-0.1 10^3/uL Immature Granulocyte # (Auto) 0.0 0.0-0.1 10^3/uL D-Dimer 0.43 0.00-0.49 UG/ML Sodium Level 139 135-145 MMOL/L Potassium Level 3.6 3.6-5.0 MMOL/L Chloride Level 105 98-107 MMOL/L Carbon Dioxide Level 22 21-32 MMOL/L Anion Gap 12 5-14 MMOL/L Blood Urea Nitrogen 6 L 7-18 MG/DL Creatinine 0.71 0.60-1.30 MG/DL Estimat Glomerular Filtration Rate 115 BUN/Creatinine Ratio 8 Glucose Level 88 70-105 MG/DL Calcium Level 8.8 8.5-10.1 MG/DL Magnesium Level 2.0 1.6-2.4 MG/DL Serum Test, Qualitative NEGATIVE NEGATIVE My Orders Orders - RHETT LYNCH MD Basic Metabolic Panel (10/17/21 06:29) Cbc With Automated Diff (10/17/21 06:29) Hcg,Qualitative Serum (10/17/21 06:29) Magnesium (10/17/21 06:29) Fibrin Degradation Products (10/17/21 06:29) Ed Iv/Invasive Line Start (10/17/21 06:29) Ketorolac Injection (Toradol Injection) (10/17/21 06:30) Femur, Right, 2 Views (10/17/21 07:06) Medications Given in ED Vital Signs/I&O 10/17/21 09:17 Pulse 63 Resp 16 B/P (MAP) 127/97 Pulse Ox 98 O2 Delivery Room Air Progress Progress Note : Progress Note Basic labs were obtained and were unremarkable. D-dimer was negative. Femur x- rays were obtained and were also unremarkable. Toradol was given for pain with successful relief. The exact cause of her pain is uncertain but may be radicular in nature. See discharge instructions. Diagnostic Imaging Diagonstic Imaging: Xray Plain Films/CT/US/NM/MRI: leg Comments Femur x-rays viewed by me and report reviewed. See report below: NAME: [facility] REC#: [id number] PT STATUS: DEP ER : 1990 PHYSICIAN: RHETT LYNCH MD ADMIT DATE: 10/17/21/ER Signed Date of Exam:10/17/21 FEMUR, RIGHT, 2 VIEWS INDICATION: Right leg pain is no known injury. Covid positive. TECHNIQUE: Frontal and Lateral views of the right femur CORRELATION STUDY: None FINDINGS: Examination of the femur demonstrates no evidence for acute bony abnormality or fracture of the femur. No zeynep bony destructive change. Imaging of the hip and knee are unremarkable. Soft tissues are unremarkable. Rounded calcification in the right hemipelvis, nonspecific. IMPRESSION: 1. Negative for acute bony abnormality of the femur. Dictated by: Dictated on workstation # [id number] Dict: 10/17/21 0756 Trans: 10/17/21 1036 DO [id number] Interpreted by: SANDY BOWMAN DO Electronically signed by: SANDY BOWMAN DO 10/17/21 1036 Departure Impression Primary Impression: Right thigh pain Additional Impressions: COVID-19 Leukocytosis Qualified Codes: D72.829 - Elevated white blood cell count, unspecified Disposition: 01 HOME, SELF-CARE Condition: Improved Departure-Patient Inst. Decision time for Depature: 08:54 Referrals: NO,LOCAL PHYSICIAN (PCP/Family) Primary Care Physician Patient Instructions: COVID-19 Overview, Radiculopathy Add. Discharge Instructions: The exact cause of your right thigh pain is uncertain. It may be related to muscle aching and spasming from being ill with COVID-19. Another possible cause is radicular pain from a nerve being pinched above the thigh either in the sciatic region or in the lower back. You may take ibuprofen up to 600 mg every 6 hours as needed and/or Tylenol (acetaminophen) up to 1000 mg every 6 hours as needed for pain. If your pain is not controlled with [id number] medications or if you have worsening symptoms, especially weakness in the legs, difficulty controlling bowels or bladder, or numbness in the groin, please return to the emergency room promptly. Please establish with a primary care provider as soon as possible. You should discuss your low white blood cell count and have repeat blood work performed in a week or two to ensure that this improves. It is important that this be evaluated to ensure you do not have some other serious underlying cause for low white blood cell count. Also discussed your thigh pain and possible causes when you establish with a primary care provider. Call with questions or concerns. All discharge instructions reviewed with patient and/or family. Voiced understanding. RHETT LYNCH MD Oct 17, 2021 08:59
[2021-10-17 09:17] VITALS: BP 127/97
== END 2021-10-17 09:17 | disposition home or self-care (01) ==
LOC: EDUNIT# 05:52 → ER 05:57
DX: U07.1 COVID-19 (principal); M79.651 Pain in right thigh; D72.829 Elevated white blood cell count, unspecified; Z72.0 Tobacco use
CPT/HCPCS: 36415; 73552; 80048; 83735; 84703; 85025; 85379